=== PATIENT | male | born 1955 | race Two or more races ===

== ENCOUNTER 2017-05-23 06:55 | Day surgery (SDC) | payer BC ==
[~2017-05-23] VITALS: Ht 165.1 cm; Wt 63.5 kg
[~2017-05-23 06:55] MED LIST: ASPI81TA27 PO; ATOR20TA50 PO; HYDR50TA69 PO; LISI-646 PO; PRE5T PO
[2017-05-23] MEDS: IOHEXOL 350 MG/ML 100ML IJ ONE (07:06)
[2017-05-23] MEDS: LIDOCAINE 2%HCL (LOCAL ANESTH.) INJ 20ML MDV ONE (07:06)
[2017-05-23] MEDS: fentaNYL CITRATE 100 MCG/2 ML VL ONE (07:18)
[2017-05-23] MEDS: ANGIOMAX 250 MG VIAL IV ONE (07:18)
[2017-05-23] MEDS: MIDAZOLAM HCL 1MG/1ML-2 ML VIAL ONE (07:18)
[2017-05-23] MEDS: SODIUM CHL 0.9% 0 ML ONE (07:19)
[2017-05-23] MEDS: VERAPAMIL 2.5MG/ML INJ 2ML VIAL IV ONE (08:10)
[2017-05-23] MEDS: HEPARIN SODIUM (PORCINE) 5000 UNITS/ML 1ML VIAL ONE (08:28)
== END 2017-05-23 11:00 | disposition home or self-care (01) ==
LOC: CATH 06:55
PROVIDERS: ATTEND Internal Medicine Cardiovascular Disease
DX: I25.10 Atherosclerotic heart disease of native coronary artery without angina pectoris (principal); I10 Essential (primary) hypertension; E78.5 Hyperlipidemia, unspecified; F10.99 Alcohol use, unspecified with unspecified alcohol-induced disorder
CPT/HCPCS: 93458; 99152; 99153; J2250